=== PATIENT | male | born 1960 ===

== ENCOUNTER 2022-06-13 10:37 | Outpatient (CLI) | payer OTHER, SELFPAY ==
--- NOTE | 2022-06-13 10:30 | DI.RAD_ITS ---
Exam(s) XR SHOULDER RT COMPLETE 2+V EXAM: XR SHOULDER RT COMPLETE 2+V CLINICAL HISTORY: persistent pain weak. TECHNIQUE: 2D digital imaging was performed of the right shoulder. Two images were obtained. AP an d axillary views were obtained. COMPARISON: MR MR UPPER EXT ANY JOINT RT WITHOUT CONTR* from 11/22/2021 FINDINGS: BONES: No acute fracture is present. No bony destructive lesion is seen. JOINTS: No dislocation present. There are moderate degenerative changes seen at the acromioclavicular joint. Mild degenerative changes are seen at the glenohumeral joint. There is superior subluxation of the humeral head suspicious for chronic rotator cuff tear. There are degenerative changes seen a t the greater tuberosity. SOFT TISSUE: Well corticated osseous densities are seen around the acromion. IMPRESSION: Marked degenerative changes of the shoulder. DATA REPOSITORY: RADIATION DOSE DELIVERED:
== END 2022-06-13 10:38 | disposition home or self-care (01) ==
LOC: DIORS 10:39
PROVIDERS: Visit Provider Student in an Organized Health Care Education/Training Program
DX: M75.101 Unspecified rotator cuff tear or rupture of right shoulder, not specified as traumatic; M19.011 Primary osteoarthritis, right shoulder
CPT/HCPCS: 73030